=== PATIENT | male | born 1975 | race Caucasian/White ===

== ENCOUNTER 2017-07-26 09:45 | Emergency (ER) | payer OTHER ==
[~2017-07-26] VITALS: Ht 180.3 cm; Wt 77.0 kg
[2017-07-26 09:55] VITALS: TEMP 36.8; Ht 180.3 cm; Wt 77.0 kg
[2017-07-26] MEDS ORDERED: SODIUM CHLORIDE 0.9% 1000ML 1,000 ML IV STA (10:04)
[2017-07-26] MEDS ORDERED: DiphenhydrAMINE HCL 50 MG/ML VIAL IV STA (10:06)
[2017-07-26] MEDS ORDERED: LITH300T2 PO (10:22)
[2017-07-26] MEDS ORDERED: HYDR50CA2 PO (10:22)
[2017-07-26] MEDS ORDERED: BUSP15TA70 PO (10:22)
[2017-07-26] MEDS ORDERED: BENZ-89 PO (10:22)
[2017-07-26] MEDS ORDERED: CITA20TA9 PO (10:22)
[2017-07-26 10:49] LABS: BASO % 0.1 %; BASO ABS # 0.01 K/uL (0-0.2); EOS % 0.8 %; EOS ABS # 0.07 K/uL (0-0.5); HEMATOCRIT 42.9 % (42-52); HEMOGLOBIN 14.6 g/dL (14.0-18.0); IG# 0.02 K/uL (0.00-0.02); LYMPH % 17.1 %; LYMPH ABS # 1.44 K/uL (1.2-3.4); MEAN CELL VOLUME 88.5 fL (80-100); MEAN CORPUSCULAR HEMOGLOBIN 30.1 pg (25-34); MONO % 6.3 %; MONO ABS # 0.53 K/uL (0.11-0.59); NEUT % 75.5 %; NEUT ABS # 6.34 K/uL (1.4-6.5); PLATELET COUNT 254 K/uL (130-400); RED CELL DISTRIBUTION WIDTH CV 12.3 % (11.5-14.5); RED CELL DISTRIBUTION WIDTH SD 39.6 fL (36.4-46.3); WHITE BLOOD COUNT 8.41 K/uL (4.8-10.8)
--- NOTE | 2017-07-26 10:49 | DIAGNOSTIC IMAGING REPORT ---
HEAD CT NONCONTRAST CT DOSE: 788.63 mGycm HISTORY: trouble swallowing and talking, TECHNIQUE: Multiaxial CT images of the head were performed without the use of intravenous contrast. Automated exposure control was utilized for this study. A dose lowering technique was utilized adhering to the principles of ALARA. Comparison: None. Findings: The paranasal sinuses and mastoid air cells are clear. The calvarium and skull base are intact. The ventricles and sulci are within normal limits. There is no mass, hematoma, midline shift, or acute infarct. Impression: No acute intracranial abnormality. Electronically signed by: Zhou Mcpherson M.D. 07/26/2017 10:48 AM Dictated Date/Time: 07/26/2017 10:44 AM
[2017-07-26 11:04] LABS: ALBUMIN 4.4 gm/dl (3.4-5.0); CALCIUM 9.9 mg/dl (8.5-10.1); CREATININE 1.32 mg/dl (0.60-1.40); POTASSIUM 3.9 mmol/L (3.5-5.1)
[2017-07-26 11:07] LABS: TOTAL PROTEIN 7.6 gm/dl (6.4-8.2)
[2017-07-26 11:16] VITALS: BP 130/73
[2017-07-26 12:08] VITALS: PULSE 78; O2SAT 97
--- NOTE | 2017-07-26 14:04 | EMERGENCY ROOM VISIT NOTE ---
History Report prepared by Puneet: Khurram Coe Under the Supervision of: Dr. Kal Hobbs D.O. First contact with patient: 09:50 Stated Complaint: AFIB History of Present Illness The patient is a 42 year old male who presents to the Emergency Room with complaints of pain in his bottom jaw, bottom lip that began yesterday. The patient describes the sensation in the bottom of his jaw as a "tightness." He states that he cannot move his mouth and cannot swallow anything. He has been drooling on himself because he cannot swallow. He is also complaining of involuntary tremors in his right hand and bottom lip. He adds that he was on 5 mg of Cogentin daily which he stopped taking 5 days ago. He was given 2 doses of his Cogentin today for his symptoms. He also stopped taking Haldol today, and is also on [place]. The patient notes that since taking the 2 doses of Cogentin his symptoms have improved 20-30% Source of History: patient Onset: Yesterday Position: head (Bottom of jaw, bottom lip) Quality: other (Tightness of the bottom jaw, unable to move) Timing: other (improving) Note: Tremors the right hand Review of Systems See HPI for pertinent positives & negatives. A total of 10 systems reviewed and were otherwise negative. Past Medical & Surgical Hx of psychiatric conditions - on medication Family History NO family histories discussed. Social History [facility] Status: [facility]ation Status: other ([facility]) Current/Historical Medications Scheduled Benztropine Mesylate (Cogentin), 1 MG PO BID Buspirone Hcl (Buspar), 15 MG PO TID Citalopram Hydrobromide (Celexa), 20 MG PO DAILY Hydroxyzine Pamoate (Vistaril), 50 MG PO BID [place] Carbonate ([place] Carbonate Tab), 300 MG PO TID Physical Exam Vital Signs Date Time Temp Pulse Resp B/P (MAP) Pulse Ox O2 Delivery O2 Flow Rate FiO2 07/26/17 12:08 78 18 97 07/26/17 11:16 79 16 130/73 98 Room Air 07/26/17 10:24 74 16 141/85 96 Room Air 07/26/17 09:55 36.8 77 16 141/85 96 Room Air 07/26/17 09:54 74 Physical Exam GENERAL: Sitting up in bed, alert, well appearing, well nourished, disheveled, non-toxic EYE EXAM: normal conjunctiva. PERRL and EOM's intact. OROPHARYNX: no exudate, no erythema, lips, buccal mucosa, and tongue normal and mucous membranes are moist. Patient can only open jaw 50-60%, no clicking over TMJs, no peritonsillar abscess. Able to tolerate secretions. NECK: supple, no nuchal rigidity, no adenopathy, non-tender LUNGS: Clear to auscultation. Normal chest wall mechanics HEART: no murmurs, S1 normal and S2 normal ABDOMEN: abdomen soft, non-tender, normo-active bowel sounds, no masses, no rebound or guarding. SKIN: no rashes and no bruising UPPER EXTREMITIES: upper extremities are grossly normal. Right Upper Extremity has a baseline tremor which resolves with movement. LOWER EXTREMITIES: No pitting edema. NEURO EXAM: Normal sensorium, cranial nerves II-XII intact with tremor of jaw, normal speech, no weakness of arms, no weakness of legs. Medical Decision & Procedures ER Provider Diagnostic Interpretation: Radiology results as stated below per my review and the radiologist's interpretation: HEAD CT NONCONTRAST CT DOSE: 788.63 mGycm HISTORY: trouble swallowing and talking, TECHNIQUE: Multiaxial CT images of the head were performed without the use of intravenous contrast. Automated exposure control was utilized for this study. A dose lowering technique was utilized adhering to the principles of ALARA. Comparison: None. Findings: The paranasal sinuses and mastoid air cells are clear. The calvarium and skull base are intact. The ventricles and sulci are within normal limits. There is no mass, hematoma, midline shift, or acute infarct. Impression: No acute intracranial abnormality. Electronically signed by: Zhou Mcpherson M.D. 07/26/2017 10:48 AM Dictated Date/Time: 07/26/2017 10:44 AM Laboratory Results 07/26/17 10:20 Red Blood Count 4.85, Mean Corpuscular Volume 88.5, Mean Corpuscular Hemoglobin 30.1, Mean Corpuscular Hemoglobin Concent 34.0, Mean Platelet Volume 9.0, Neutrophils (%) (Auto) 75.5, Lymphocytes (%) (Auto) 17.1, Monocytes (%) (Auto) 6.3, Eosinophils (%) (Auto) 0.8, Basophils (%) (Auto) 0.1, Neutrophils # (Auto) 6.34, Lymphocytes # (Auto) 1.44, Monocytes # (Auto) 0.53, Eosinophils # (Auto) 0.07, Basophils # (Auto) 0.01 07/26/17 10:20 Test 07/26/17 10:20 07/26/17 11:35 White Blood Count 8.41 K/uL (4.8-10.8) Red Blood Count 4.85 M/uL (4.7-6.1) Hemoglobin 14.6 g/dL (14.0-18.0) Hematocrit 42.9 % (42-52) Mean Corpuscular Volume 88.5 fL (80-100) Mean Corpuscular Hemoglobin 30.1 pg (25-34) Mean Corpuscular Hemoglobin Concent 34.0 g/dl (32-36) Platelet Count 254 K/uL (130-400) Mean Platelet Volume 9.0 fL (7.4-10.4) Neutrophils (%) (Auto) 75.5 % Lymphocytes (%) (Auto) 17.1 % Monocytes (%) (Auto) 6.3 % Eosinophils (%) (Auto) 0.8 % Basophils (%) (Auto) 0.1 % Neutrophils # (Auto) 6.34 K/uL (1.4-6.5) Lymphocytes # (Auto) 1.44 K/uL (1.2-3.4) Monocytes # (Auto) 0.53 K/uL (0.11-0.59) Eosinophils # (Auto) 0.07 K/uL (0-0.5) Basophils # (Auto) 0.01 K/uL (0-0.2) RDW Standard Deviation 39.6 fL (36.4-46.3) RDW Coefficient of Variation 12.3 % (11.5-14.5) Immature Granulocyte % (Auto) 0.2 % Immature Granulocyte # (Auto) 0.02 K/uL (0.00-0.02) Anion Gap 3.0 mmol/L (3-11) Est Creatinine Clear Calc Drug Dose 79.2 ml/min Estimated GFR () 77.7 Estimated GFR (Non- 67.0 BUN/Creatinine Ratio 8.3 (10-20) Calcium Level 9.9 mg/dl (8.5-10.1) Total Bilirubin 0.6 mg/dl (0.2-1) Direct Bilirubin 0.1 mg/dl (0-0.2) Aspartate Amino Transf (AST/SGOT) 21 U/L (15-37) Alanine Aminotransferase (ALT/SGPT) 39 U/L (12-78) Alkaline Phosphatase 124 U/L (45-117) Total Protein 7.6 gm/dl (6.4-8.2) Albumin 4.4 gm/dl (3.4-5.0) Lipase 156 U/L (73-393) [place] Level 0.7 mMOL/L (0.6-1.2) Urine Color YELLOW Urine Appearance CLEAR (CLEAR) Urine pH 7.5 (4.5-7.5) Urine Specific [place] <= 1.005 (1.000-1.030) Urine Protein NEG (NEG) Urine Glucose (UA) NEG (NEG) Urine Ketones NEG (NEG) Urine Occult Blood NEG (NEG) Urine Nitrite NEG (NEG) Urine Bilirubin NEG (NEG) Urine Urobilinogen NEG (NEG) Urine Leukocyte Esterase NEG (NEG) Urine RBC 0-4 /hpf (0-4) Urine WBC 0 /hpf (0-5) Urine Epithelial Cells 0-5 /lpf (0-5) Urine Bacteria NEG (NEG) Laboratory results per my review. Medications Administered Medications (Trade) Dose Ordered Sig/Ne Route Start Time Stop Time Status Last Admin Dose Admin Sodium Chloride 1,000 ml @ 999 mls/hr Q1H1M STAT IV 07/26/17 10:04 07/26/17 11:04 DC 07/26/17 10:47 999 MLS/HR Diphenhydramine HCl (Benadryl Inj) 50 mg NOW STAT IV 07/26/17 10:06 07/26/17 10:08 DC 07/26/17 10:47 50 MG ECG Per My Interpretation Indication: other (A-fib ) Rate (beats per minute): 70 Rhythm: normal sinus Findings: other (No PVCs, ) ED Course ED COURSE: Vital signs were reviewed and showed hypertensive vitals. The patients medical record was reviewed The above diagnostic studies were performed and reviewed. ED treatments and interventions as stated above. 0955: The patient was evaluated in room B6. A complete history and physical examination was performed. 1004: Ordered Sodium Chloride 1000 mL @ 999 mL/hr IV. 1006: Ordered Benadryl 50 mg IV. 1043: I checked on the patient at this time. He is doing well. 1138: I discussed the [facility]. She states that they can manage the patient. She told me that she sent an EKG over with the officers. This EKG shows normal sinus rhythm 1141: Upon reevaluation, the patient is resting in bed.I discussed my findings with the patient and he understands and agrees with the treatment plan. Based on the patients age, coexisting illnesses, exam and lab findings the decision to treat as an outpatient was made. The patient remained stable while under my care. The patient appeared well at the time of discharge. Medical Decision Differential diagnosis: Etiologies such as toxicologic, infection, hypoglycemia, electrolyte abnormalities, cardiac sources, intracerebral event, neurologic, as well as others were entertained. Patient is a 42-year-old male who presents the ER referred in from the [facility] for A. fib. EKG was reviewed from [facility] and EKG was repeated here and shows a normal sinus rhythm in both EKGs. I did contact the [facility]. He was recently stopped taking his Cogentin and he just stopped his Haldol as he is having some rigidity in his master muscles. He does appear to be having a dystonic reaction secondary to Haldol. This has been stopped. He was placed on Cogentin again. He was agreeable to taking it now. He has 2 doses prior to arrival. CBC along with BMP, LFTs, bilirubin and lipase was unremarkable. UA was negative. [place] was normal. CT head was negative. Patient was neurologically intact. I do believe that this is a dystonic reaction secondary to Haldol not taking Cogentin. He was given Benadryl. His symptoms significantly improved. Discussed with the [facility] and he was sent back. Discussed with Pt concerning signs and symptoms to watch out for. Pt was instructed to follow up with their PCP and discussed with the patient their option to return to the ED at anytime for persistent or worsening symptoms. The appropriate anticipatory guidance and out-patient management, including indications for return to the emergency department, were explained at length to the patient and understood. Medication Reconcilliation Current Medication List: was personally reviewed by me Blood Pressure Screening Patient's blood pressure: Elevated blood pressure Consults Time Called: 1130 Consulting Physician: [facility] Returned Call: [phone] I discussed the case with Tiffany From the [facility]. She states that they can manage the patient. Impression Primary Impression: Jaw pain Additional Impression: Dystonic drug reaction Scribe Attestation The scribe's documentation has been prepared under my direction and personally reviewed by me in its entirety. I confirm that the note above accurately reflects all work, treatment, procedures, and medical decision making performed by me. Departure Information Dispostion Home / Self-Care (Back to [facility]) Referrals No Doctor, Assigned (PCP) Forms HOME CARE DOCUMENTATION FORM, IMPORTANT VISIT INFORMATION, WORK / SCHOOL INSTRUCTIONS Patient Instructions My [facility] Additional Instructions Please follow up with your primary care doctor with in the next 24 hours. Any worsening of your symptoms, please return to the ED immediately. This includes any fevers greater than 100.4, trouble opening her mouth, trouble swallowing, worsening pain, chest pain, shortness breath, persistent nausea, vomiting, unable to eat or drink, or any other concerning signs or symptoms from your standpoint. Patient was given IV 50 mg of Benadryl. EKG from here and from the [facility] did show a sinus rhythm. Problem Qualifiers
== END 2017-07-26 12:09 | disposition home or self-care (01) ==
LOC: C.EDB 09:50
DX: R68.84 Jaw pain (principal); G24.09 Other drug induced dystonia; T43.1X5A Adverse effect of monoamine-oxidase-inhibitor antidepressants, initial encounter